=== PATIENT | male | born 1965 | race Caucasian/White ===

== ENCOUNTER 2021-07-12 01:01 | Emergency (ER) | payer OTHER, SELFPAY ==
[2021-07-12 01:22] VITALS: BP 155/93; PULSE 105; RESP 18; TEMP 37.6; O2SAT 94; BMI 27.0
--- NOTE | 2021-07-12 02:54 | W.ED.GENADLT ---
HPI - General Adult General: Chief complaint: General Medical Stated complaint: covid symptoms Time Seen by Provider: 07/12/21 02:50 Source: patient Mode of arrival: ambulatory Limitations: no limitations History of Present Illness: HPI narrative: 55-year-old male states he has been having some headaches mainly sinus headache sinus congestion over the last 2 days. He states that he gets recurrent sinus infections and this feels similar. He states that he is concerned he may have COVID but states is extremely cautious states that he does not believe that he has been exposed. He denies any vomiting or diarrhea. Denies any cough. Associated symptoms: Reports headache(s); Deny chest pain, dyspnea, nausea, rash or vomiting Review of Systems Const: Reports: chills Eyes: Denies: blurry vision or eye discomfort ENMT: Reports: nasal congestion Card: Denies: chest pain Resp: Denies: dyspnea GI: Denies: abdominal pain, nausea, vomiting or diarrhea : Denies: dysuria Musc: Denies: neck pain or back pain Skin/Breast: Denies: rash Neuro: Reports: headache(s) Psych: Denies: depression Manoj/Lymph: Denies: easy bruising All/Imm: Denies: urticaria PFSH ED PFSH: Medical History (Updated 07/12/21 @ 03:01 by Aracelis Hirsch MD) No pertinent past medical history Social History (Updated 07/12/21 @ 03:01 by Aracelis Hirsch MD) Substance/Drug Use: never Physical Exam Const: COMMON NORMALS: no acute distress, patient oriented x3 and healthy appearing HENMT: COMMON NORMALS: normocephalic and atraumatic HEAD & SCALP: normocephalic and atraumatic OTHER: Nasal congestion noted with frontal sinus tenderness Eye: COMMON NORMALS: Equal, round and reactive pupils present and EOMs intact bilaterally PUPIL: Yes Equal, round and reactive pupils present Neck/C-Spine: COMMON NORMALS: full ROM and supple Chest: COMMONS NORMALS: normal inspection of the chest and normal palpation of entire chest wall Resp: COMMON NORMALS: normal respiratory effort, No retractions, No use of accessory muscles and clear to auscultation bilaterally AUSCULTATION: clear to auscultation bilaterally Cardio: COMMON NORMALS: regular rate, regular rhythm and No murmurs present (Cardio) RATE: regular rate RHYTHM: regular rhythm GI: COMMON NORMALS: Normal to inspection, nondistended, normoactive bowel sounds present, Soft to palpation, non-tender and no masses PALPATION: Yes Soft to palpation Extremity: COMMON NORMALS: normal to inspection and full ROM Neuro: COMMON NORMALS: patient oriented x3, moves all extremities and no focal motor deficits Psych: COMMON NORMALS: mental status grossly normal, Normal thought process present and cooperative THOUGHT PROCESS: Normal thought process present Skin: COMMON NORMALS: no rashes or lesions noted and no wounds GENERAL SKIN EXAM: no rashes or lesions noted Course Vital Signs: Vital signs: Vital Signs Temperature 99.6 F 07/12/21 01:22 Pulse Rate 105 H 07/12/21 01:22 Respiratory Rate 18 07/12/21 01:22 Blood Pressure 155/93 07/12/21 01:22 Pulse Oximetry 94 07/12/21 01:22 MDM - General Adult MDM Narrative: Medical decision making narrative: Patient presents here with likely sinusitis. We will test him for COVID will prescribe him Keflex informed him to hold the Keflex prescription until we get the COVID result back in a day or 2 but is negative he is to start if it is positive I went started and likely symptoms are from COVID. Patient given Decadron here he is to follow-up his PCP in 5 to 7 days and return if worsening. He understands agrees to plan. Discharge Plan Discharge Patient Disposition: Home Clinical Impression: Sinusitis Qualifiers: Sinusitis location: frontal Chronicity: acute Recurrence: non-recurrent Qualified Code(s): J01.10 - Acute frontal sinusitis, unspecified Condition: Stable Prescriptions: New cephalexin 500 mg capsule 500 mg PO QID 7 Days Qty: 28 RF: 0 Discharge Orders: Discharge ED (Routine); Ordered 07/12/21 Ordered By: Aracelis Hirsch Discharge Diet: Advance as tolerated Discharge Activity: Resume usual activity Patient Instructions: Sinusitis (ED) Coding Level of Care Code ED Community Health Program Coordinator for Chg Fwd Exam Comprehensive
[2021-07-12] MEDS: dexamethasone 4 mg Tablet 10 MG PO (03:06)
[2021-07-14 07:56] LABS: Quest SARS-CoV-2 RNA DETECTED (NOT DETECTED)
== END 2021-07-12 03:07 | disposition home or self-care (01) ==
PROVIDERS: Emergency Provider Emergency Medicine
DX: J01.10 Acute frontal sinusitis, unspecified (principal); U07.1 COVID-19
CPT/HCPCS: 87635; 99283; J8540

== ENCOUNTER → 2023-04-03 08:46 | Outpatient (BNVA) | payer OTHER, SELFPAY | PROVIDERS: Visit Provider Family Medicine | DX: I10 Essential (primary) hypertension (principal); E78.5 Hyperlipidemia, unspecified; E66.3 Overweight; N52.9 Male erectile dysfunction, unspecified | CPT/HCPCS: 85025 ==

== ENCOUNTER 2023-07-20 18:13 | Emergency (ER) | payer OTHER, SELFPAY ==
[2023-07-20 18:22] VITALS: BP 159/92; PULSE 87; RESP 15; TEMP 36.7; O2SAT 95
[2023-07-20 18:50] LABS: Basophils % 0.5 %; Eosinophils # 0.2 10^3/uL (0.0-0.8); Eosinophils % 2.3 %; Hematocrit 47.3 % (37-53); Lymphocytes # 2.2 10^3/uL (0.8-4.8); Lymphocytes % 34.2 %; Mean Corpuscular HGB Conc 33.2 g/dL (30-55); Mean Corpuscular Hemoglobin 30.2 pg (27-33); Monocytes # 0.6 10^3/uL (0.2-0.9); Monocytes % 8.7 %; Neutrophils # 3.47 10^3/uL (1.8-7.7); Neutrophils % 54.1 %; Nucleated Red Blood Cells % 0 %; Platelet Count 282 10^3/cmm (157-399); Red Cell Distribution Width 12.6 % (12.1-15.1); White Blood Count 6.41 10^3/uL (3.29-11.43)
--- NOTE | 2023-07-20 18:59 | W.ED.ABDPA2 ---
HPI - Abdominal Pain General: Chief Complaint: Abdominal Pain Stated Complaint: righ abd pain Time Seen by Provider: 07/20/23 18:58 History of Present Illness: 57-year-old male patient comes in today with right abdominal pain. Patient appears nontoxic. Patient reports pain is exacerbated by eating. Patient does have his gallbladder. Patient had his appendix out. Patient has been diagnosed with IBS x 10 years. Patient does take medications for high blood pressure, ED, allergies, and cholesterol. Associated Symptoms: Reports nausea; Denies constipation, diarrhea and vomiting Review of Systems General: Reports: 10 or more systems reviewed and unremarkable except in HPI and below GI: Reports: abdominal pain and nausea; Denies: vomiting, diarrhea or constipation PFSH ED PFSH: Medical History (Updated 07/20/23 @ 20:14 by BRENDA Brown) Herpes simplex Erectile dysfunction Basal cell carcinoma Arrhythmia Dyslipidemia Hypertension Surgical History History of radiofrequency ablation procedure for cardiac arrhythmia History of umbilical hernia repair History of appendectomy Family History Other Diabetes Hyperlipidemia Hypertension Denies family history of CAD (coronary artery disease) Clotting disorder Dementia Psychiatric illness Chronic kidney disease (CKD) Anesthesia complication Bleeding disorder Lung disease Cancer Stroke Social History Smoking and tobacco/nicotine status: never used tobacco/nicotine Alcohol intake: never Substance/Drug Use: never Lives independently: Yes Marital status: Single Number of children: 5 Current occupational status: employed Current occupation: [employer] Special lilian needs: No Agree to transfusion: Yes Physical Exam Const: COMMON NORMALS: alert HENMT: COMMON NORMALS: normocephalic HEAD & SCALP: normocephalic Neck/C-Spine: COMMON NORMALS: full ROM Chest: COMMONS NORMALS: normal inspection of the chest Resp: COMMON NORMALS: normal respiratory effort and clear to auscultation bilaterally AUSCULTATION: clear to auscultation bilaterally Cardio: COMMON NORMALS: regular rate and regular rhythm RATE: regular rate RHYTHM: regular rhythm GI: COMMON NORMALS: Soft to palpation PALPATION: Yes Soft to palpation and Yes Tenderness to palpation present (GI) Details: RUQ : COMMON NORMALS: Yes no CVA tenderness BLADDER/KIDNEY EXAM: Yes no CVA tenderness Back/Pelvis: COMMON NORMALS: no CVA tenderness Extremity: COMMON NORMALS: normal to inspection and no pedal edema Neuro: SENSORIUM/ORIENTATION: Yes alert Skin: COMMON NORMALS: turgor normal GENERAL SKIN EXAM: turgor normal Course Vital Signs: Vital signs: Vital Signs Temperature 98.0 F 07/20/23 18:22 Pulse Rate 87 07/20/23 18:22 Respiratory Rate 15 07/20/23 18:22 Blood Pressure 159/92 07/20/23 18:22 Pulse Oximetry 95 07/20/23 18:22 Oxygen Delivery Me thod Room Air 07/20/23 18:22 MDM - Abdominal Pain Medical Decision Making 57-year-old male patient comes in with persistent right upper quadrant abdominal pain for 2 weeks. Patient reports pain is worsened by eating. Patient reports mild nausea but no vomiting or diarrhea. Patient does have a history of IBS which he first related to it and had changed his diet but has had no improvement in pain over the last 2 weeks. Patient appears nontoxic. Patient appears in mild pain. Respirations are even lungs are clear to auscultation. Patient does have tenderness in right upper quadrant on palpation. Differential diagnosis includes but not limited to gallbladder disease, renal colic, constipation, IBS, pancreatitis, gastroenteritis. CBC, CMP, CT of the abdomen pelvis, and urinalysis were all within normal limits. Reviewed exam with patient with recommendations for treatment follow-up with primary care to discuss possible ultrasound and HIDA scan. No signs of acute illness was noted at this time. Patient reported understanding of care plan and need for follow-up or return to the ER. Lab Data 07/20/23 18:35 07/20/23 18:35 Labs/Radiology: Radiology Impressions Abdomen/Pelvis CT 07/20/23 19:05 IMPRESSION: 1. No bowel obstruction or inflammatory process associated with the bowel. 2. No free air or significant free fluid in the abdomen or pelvis. 3. The appendix is not visualized but there are no secondary signs of acute appendicitis. COMMENTS: Consistent with the [employer] [employer]'s Incidental Findings Committee white paper (J Am Sherrell Radiol 2018): Any incidental renal lesion less than 1 cm or classified as too small to characterize, or any incidental cystic renal lesion characterized as simple-appearing, is likely benign. No follow-up imaging is recommended for these lesions per consensus recommendations based on imaging criteria. Laboratory Results WBC 6.41 10^3/uL (3.29-11.43) 07/20/23 18:35 RBC 5.20 10^6/uL (3.85-5.65) 07/20/23 18:35 Hgb 15.70 g/dL (11.27-16.99) 07/20/23 18:35 Hct 47.3 % (37-53) 07/20/23 18:35 MCV 91.0 fl (82-101) 07/20/23 18:35 MCH 30.2 pg (27-33) 07/20/23 18:35 MCHC 33.2 g/dL (30-55) 07/20/23 18:35 RDW 12.6 % (12.1-15.1) 07/20/23 18:35 Plt Count 282 10^3/cmm (157-399) 07/20/23 18:35 MPV 10.0 fL (7.4-10.4) 07/20/23 18:35 Neut % (Auto) 54.1 % 07/20/23 18:35 Lymph % (Auto) 34.2 % 07/20/23 18:35 [place] % (Auto) 8.7 % 07/20/23 18:35 Eos % (Auto) 2.3 % 07/20/23 18:35 Baso % (Auto) 0.5 % 07/20/23 18:35 Neut # (Auto) 3.47 10^3/uL (1.8-7.7) 07/20/23 18:35 Lymph # (Auto) 2.2 10^3/uL (0.8-4.8) 07/20/23 18:35 [place] # (Auto) 0.6 10^3/uL (0.2-0.9) 07/20/23 18:35 Eos # (Auto) 0.2 10^3/uL (0.0-0.8) 07/20/23 18:35 Baso # (Auto) 0.0 10^3/uL (0.0-0.1) 07/20/23 18:35 Nucleated RBC % (auto) 0 % 07/20/23 18:35 Nucleated RBCs # 0.0 /100WBC 07/20/23 18:35 Sodium 142 mmol/L (136-145) 07/20/23 18:35 Potassium 4.2 mmol/L (3.5-5.1) 07/20/23 18:35 Chloride 105 mmol/L (98-107) 07/20/23 18:35 Carbon Dioxide 23 mmol/L (22-29) 07/20/23 18:35 Anion Gap 18.2 (5-19) 07/20/23 18:35 BUN 15 mg/dL (6-20) 07/20/23 18:35 Creatinine 0.9 mg/dL (0.7-1.2) 07/20/23 18:35 GFR Calculation 86.7 mL/min (90-130) L 07/20/23 18:35 Glucose 112 mg/dL (65-115) 07/20/23 18:35 Calculated Osmolality 296 mOsm/kg (285-295) H 07/20/23 18:35 Calcium 9.4 mg/dL (8.5-10.5) 07/20/23 18:35 Total Bilirubin 0.4 mg/dL (0.15-1.2) 07/20/23 18:35 AST 29 U/L (0-40) 07/20/23 18:35 ALT 33 U/L (0-41) 07/20/23 18:35 Alkaline Phosphatase 78 U/L (40-130) 07/20/23 18:35 Total Protein 7.5 g/dL (6.6-8.7) 07/20/23 18:35 Albumin 4.4 g/dL (3.5-5.2) 07/20/23 18:35 Globulin 3.1 g/dL (1.3-4.6) 07/20/23 18:35 Lipase 46 U/L (13-60) 07/20/23 18:35 Urine Color Yellow (Yellow) 07/20/23 19:32 Urine Appearance Clear (CLEAR) 07/20/23 19:32 Urine pH 5 (5-7) 07/20/23 19:32 Ur Specific Rufe 1.025 (1.005-1.030) 07/20/23 19:32 Urine Protein Neg (Negative) 07/20/23 19:32 Urine Glucose (UA) Norm (Normal) 07/20/23 19:32 Urine Ketones Negative (Negative) 07/20/23 19:32 Urine Blood Neg (Negative) 07/20/23 19:32 Urine Nitrate Negative (Negative) 07/20/23 19:32 Urine Bilirubin Neg (Negative) 07/20/23 19:32 Urine Urobilinogen Norm mg/dL (Negative) 07/20/23 19:32 Ur Leukocyte Esterase Negative (Negative) 07/20/23 19:32 All radiology interpretation(s) finalized by discharge Discharge Plan Discharge Patient Disposition: Home Clinical Impression: Abdominal pain Qualifiers: Abdominal location: right upper quadrant Qualified Code(s): R10.11 - Right upper quadrant pain Condition: Stable Prescriptions: No Action triamcinolone acetonide 0.1 % cream 1 applic topical BID fluticasone propionate [Flonase Allergy Relief] 50 mcg/actuation spray,suspension 2 spray intranasal DAILY Qty: 16 0RF Rx Instructions: administer into each nostril azithromycin 250 mg tablet See Rx Instructions PO .COMPLEX Qty: 6 0RF Rx Instructions: take 500 mg today (day 1), then 250 mg for 4 days (days 2-5) PO amlodipine [Norvasc] 5 mg tablet 5 mg PO .qhs Qty: 30 1RF ezetimibe 10 mg tablet 10 mg PO DAILY Qty: 90 2RF sildenafil (pulm.hypertension) 20 mg tablet See Rx Instructions .ROUTE .COMPLEX Qty: 60 0RF Dose Instruction: TAKE 1 TABLET BY MOUTH ONCE NEEDED FOR SEXUAL ACTIVITY. CAN TAKE UP TO 5 TABLETS IN A 24 HOUR PERIOD Rx Instructions: TAKE 1 TABLET BY MOUTH ONCE NEEDED FOR SEXUAL ACTIVITY. CAN TAKE UP TO 5 TABLETS IN A 24 HOUR PERIOD valacyclovir [Valtrex] 1 gram tablet 1,000 mg PO BID Qty: 10 0RF Discharge Orders: Discharge ED (Routine); Ordered 07/20/23 Ordered By: Dhruv Rene Referrals: Crow Tubbs MD [Primary Care Provider] - Patient Instructions: Abdominal Pain (ED) Activity Restrictions/Additional Instructions: Follow-up with primary care. No signs of acute illness was noted at the emergency room department tonight. Is important. Continue follow-up with pain persist. Drink plenty of water and fluids. Eat a healthy diet. Activity as tolerated. You may need to have a specialized ultrasound called HIDA scan for your gallbladder to further evaluate the gallbladder to ensure no abnormality. Return to the ER for worsening symptoms such as high fever greater than 100.4, blood in vomit or stool, or uncontrolled pain. Coding Level of Care Code ED Umbrella Repairer for Gini Reid
--- NOTE | 2023-07-20 19:05 | CTR_ITS ---
PROCEDURE INFORMATION: Exam: CT Abdomen And Pelvis With Contrast Exam date and time: 07/20/2023 7:32 PM Age: 57 years old Clinical indication: Abdominal pain; Localized; Right upper quadrant (ruq); Prior surgery; Surgery date: 6+ months; Surgery type: Appy, hernia; Additional info: Ruq abd pain TECHNIQUE: Imaging protocol: Computed tomography of the abdomen and pelvis with contrast. Radiation optimization: All CT scans at this facility use at least one of these dose optimization techniques: automated exposure control; mA and/or kV adjustment per patient size (includes targeted exams where dose is matched to clinical indication); or iterative reconstruction. Contrast material: OMNI 350; Contrast volume: 100 ml; Contrast route: INTRAVENOUS (IV); COMPARISON: US abdomen limited [id number] 11/03/2021 3:45 PM RADIATION DOSE METRICS: Total DLP (mGy-cm): 943 FINDINGS: Liver: Normal. No mass. Gallbladder and bile ducts: Normal. No calcified stones. No ductal dilation. Pancreas: Normal. No ductal dilation. Spleen: Normal. No splenomegaly. Adrenal glands: Normal. No mass. Kidneys and ureters: Bilateral simple appearing renal cysts are present which do not need further follow-up, as well as other subcentimeter hypodensities which are too small to adequately characterize. Stomach and bowel: Unremarkable. No obstruction. No mucosal thickening. Appendix: The appendix is not visualized but there are no secondary signs of acute appendicitis. Intraperitoneal space: Unremarkable. No free air. No significant fluid collection. Vasculature: Unremarkable. No abdominal aortic aneurysm. Lymph nodes: Unremarkable. No enlarged lymph nodes. Urinary bladder: Unremarkable as visualized. Reproductive: Unremarkable as visualized. Bones/joints: Unremarkable. No acute fracture. Soft tissues: Unremarkable. CT/CT abdomen pelvis w con* [id number] IMPRESSION: 1. No bowel obstruction or inflammatory process associated with the bowel. 2. No free air or significant free fluid in the abdomen or pelvis. 3. The appendix is not visualized but there are no secondary signs of acute appendicitis. COMMENTS: Consistent with the [place] [employer]'s Incidental Findings Committee white paper (J Am Sherrell Radiol 2018): Any incidental renal lesion less than 1 cm or classified as too small to characterize, or any incidental cystic renal lesion characterized as simple-appearing, is likely benign. No follow-up imaging is recommended for these lesions per consensus recommendations based on imaging criteria.
[2023-07-20] MEDS: iohexol 350 mg/mL 500 mL Btl (per mL) IV (19:27)
[2023-07-20 19:40] LABS: Add Urine Microscopic? NO; Charge for UA Resulting for Rev
[2023-07-20 19:49] LABS: Alanine Aminotransferase 33 U/L (0-41); Albumin Level 4.4 g/dL (3.5-5.2); Alkaline Phosphatase 78 U/L (40-130); Anion Gap 18.2 (5-19); Aspartate Amino Transferase 29 U/L (0-40); Blood Urea Nitrogen 15 mg/dL (6-20); Calcium 9.4 mg/dL (8.5-10.5); Carbon Dioxide 23 mmol/L (22-29); Chloride 105 mmol/L (98-107); Globulin 3.1 g/dL (1.3-4.6); Glomerular Filtration Rate 86.7 mL/min (90-130); Glucose 112 mg/dL (65-115); Osmolality Calculated 296 mOsm/kg (285-295); Potassium 4.2 mmol/L (3.5-5.1); Sodium 142 mmol/L (136-145); Total Bilirubin 0.4 mg/dL (0.15-1.2); Total Protein 7.5 g/dL (6.6-8.7)
[2023-07-20 19:50] LABS: Bilirubin Urine Neg (Negative); Blood Urine Neg (Negative); Glucose Urine UA Norm (Normal); Ketones Urine Negative (Negative); Leukocyte Esterase Urine Negative (Negative); Nitrate Urine Negative (Negative); Protein Urine Neg (Negative); Specific Gravity, Urine 1.025 (1.005-1.030); Urine Appearance Clear (CLEAR); Urine Color Yellow (Yellow); Urobilinogen Urine Norm (Negative); pH Urine 5 (5-7)
[2023-07-20 20:06] LABS: Lipase 46 U/L (13-60)
== END 2023-07-20 20:27 | disposition home or self-care (01) ==
PROVIDERS: Emergency Medicine; Emergency Provider Nurse Practitioner Family; PCP Family Medicine
DX: R10.11 Right upper quadrant pain (principal); E78.5 Hyperlipidemia, unspecified; I10 Essential (primary) hypertension
CPT/HCPCS: 36415; 74177; 80053; 81003; 83690; 85025; 99285; Q9967

== ENCOUNTER 2023-08-29 13:27 | Emergency (ER) | payer OTHER, SELFPAY ==
[2023-08-29 13:34] VITALS: BP 164/93; PULSE 81; RESP 16; TEMP 36.8; O2SAT 95; BMI 28.2
[2023-08-29 14:32] LABS: Basophils % 0.6 %; Eosinophils # 0.2 10^3/uL (0.0-0.8); Eosinophils % 2.6 %; Hematocrit 47.2 % (37-53); Lymphocytes # 1.9 10^3/uL (0.8-4.8); Lymphocytes % 29.5 %; Mean Corpuscular HGB Conc 33.3 g/dL (30-55); Mean Corpuscular Hemoglobin 29.7 pg (27-33); Mean Corpuscular Volume 89.2 fl (82-101); Mean Platelet Volume 10.6 fL (7.4-10.4); Monocytes # 0.5 10^3/uL (0.2-0.9); Monocytes % 7.6 %; Neutrophils # 3.89 10^3/uL (1.8-7.7); Neutrophils % 59.4 %; Nucleated Red Blood Cells % 0 %; Platelet Count 291 10^3/cmm (157-399); Red Blood Count 5.29 10^6/uL (3.85-5.65); Red Cell Distribution Width 12.9 % (12.1-15.1); White Blood Count 6.55 10^3/uL (3.29-11.43)
[2023-08-29 14:50] LABS: Alanine Aminotransferase 18 U/L (0-41); Albumin Level 4.5 g/dL (3.5-5.2); Alkaline Phosphatase 85 U/L (40-130); Aspartate Amino Transferase 22 U/L (0-40); Blood Urea Nitrogen 11 mg/dL (6-20); Calcium 9.1 mg/dL (8.5-10.5); Carbon Dioxide 24 mmol/L (22-29); Chloride 102 mmol/L (98-107); Creatinine Clr Calc Pharmacy 101.6299; Globulin 3.1 g/dL (1.3-4.6); Glomerular Filtration Rate 76.7 mL/min (90-130); Glucose 134 mg/dL (65-115); Lipase 42 U/L (13-60); Osmolality Calculated 289 mOsm/kg (285-295); Sodium 139 mmol/L (136-145); Total Bilirubin 0.5 mg/dL (0.15-1.2); Total Protein 7.6 g/dL (6.6-8.7)
--- NOTE | 2023-08-29 14:59 | ED_ITS ---
HPI - Abdominal Pain 2 General: Chief Complaint: Abdominal Pain Stated Complaint: right side pain Time Seen by Provider: 08/29/23 14:54 Source: patient Mode of arrival: ambulatory Limitations: no limitations History of Present Illness: Patient is a nice 57-year-old male who presents to ED today for evaluation of right-sided abdominal pain. Patient states he has had almost daily right sided abdominal pain over the past 3 months or so. Patient states he was seen here in the emergency department back in June and had normal blood work and a normal CT scan. Patient states since then he followed up with his PCP Dr. Tubbs. 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 Patient states he was placed on MiraLAX and has been taking this. He feels like his bowel movements have improved and are regular however he continued to have the pain. He states about 3 weeks ago his pain changed in character and is now having more of a burning discomfort to the right side of his abdomen. Symptoms are made worse with eating especially certain foods. He states he has been on a strict low FODMAP diet. He reports over the past week or so he has tried using Mylanta 3-4 times and reports significant relief every time he has used it. Patient states he has not tried any H2/PPI medications since this all started. He states he does have an appointment with GI in [place] in early March. He states he has never used alcohol. He states prior to the abdominal pain starting, he was using ibuprofen fairly regularly for back discomforts. He states he stopped taking this once the abdominal pain started. MD elicited complaint: abdominal pain Pertinent past history: none Onset (ago): month(s) Location: RUQ and RLQ Severity: moderate Quality: burning Migration to: no migration Exacerbating factors: eating Relieving factors: nothing Associated Symptoms: Reports constipation and nausea; Denies change in bowel habits, chills, dysuria, fever(s), hematochezia, hematuria, melena and vomiting Review of Systems 2 Const: Denies: fever(s), chills, body aches, fatigue or malaise ENMT: Denies: throat pain or odynophagia Card: Denies: chest pain or palpitations Resp: Denies: dyspnea GI: Reports: abdominal pain, nausea and constipation; Denies: vomiting, change in bowel habits, hematochezia or melena : Denies: flank pain, difficulty urinating, dysuria or hematuria Musc: Denies: neck pain, back pain, extremity pain or joint pain Skin/Breast: Denies: rash Neuro: Denies: headache(s), numbness in extremities, weakness in extremities or sensory changes PFSH ED 2 PFSH: Medical History Herpes simplex Erectile dysfunction Basal cell carcinoma Arrhythmia Dyslipidemia Hypertension Surgical History History of radiofrequency ablation procedure for cardiac arrhythmia History of umbilical hernia repair History of appendectomy Family History Other Diabetes Hyperlipidemia Hypertension Denies family history of CAD (coronary artery disease) Clotting disorder Dementia Psychiatric illness Chronic kidney disease (CKD) Anesthesia complication Bleeding disorder Lung disease Cancer Stroke Social History Smoking and tobacco/nicotine status: never used tobacco/nicotine Alcohol intake: never Substance/Drug Use: never Lives independently: Yes Marital status: Single Number of children: 5 Current occupational status: employed Current occupation: [employer] Special lilian needs: No Agree to transfusion: Yes Physical Exam 2 Const: COMMON NORMALS: no acute distress, average body habitus, patient oriented x3, no limitations, healthy appearing, alert and well nourished Eye: COMMON NORMALS: no scleral icterus Resp: COMMON NORMALS: normal respiratory effort and clear to auscultation bilaterally AUSCULTATION: clear to auscultation bilaterally Cardio: COMMON NORMALS: regular rate and regular rhythm RATE: regular rate RHYTHM: regular rhythm GI: COMMON NORMALS: Normal to inspection, nondistended, normoactive bowel sounds present, Soft to palpation, non-tender, No hepatosplenomegaly present and no masses INSPECTION: Yes normal to inspection PALPATION: Yes Soft to palpation and Yes No hepatosplenomegaly present OTHER: states he is not having much discomfort currently : COMMON NORMALS: Yes no CVA tenderness BLADDER/KIDNEY EXAM: Yes no CVA tenderness Back/Pelvis: COMMON NORMALS: no CVA tenderness Neuro: COMMON NORMALS: patient oriented x3 SENSORIUM/ORIENTATION: Yes alert Course 2 Vital Signs: Vital signs: Vital Signs Temperature 98.3 F 08/29/23 13:34 Pulse Rate 81 08/29/23 15:44 Respiratory Rate 16 08/29/23 13:34 Blood Pressure 154/94 08/29/23 15:44 Pulse Oximetry 94 08/29/23 15:44 Oxygen Delivery Me thod Room Air 08/29/23 13:34 MDM - Abdominal Pain Medical Decision Making Patient is a 57-year-old male who presents to the ED today with a complaint of abdominal pain over the past 3 months. He feels like the character of his pain worsened approximately 3 weeks ago. He states it is worse with eating and improved with Mylanta use. DDx includes irritable bowel syndrome, gastritis, gastric/duodenal ulcer, biliary colic. Patient does have GI follow-up in a few weeks with GI in [place]. I think it is reasonable to trial him on sucralfate and pantoprazole and discussed with GI at his upcoming appointment if he has noticed any significant change in his discomfort. Patient seemed agreeable with this plan. Return to ED precautions. He can continue to follow- up with PCP in the meantime if needed. His vital signs today are completely normal. Blood work is unremarkable. His abdomen was nonsurgical. There is no need for emergent imaging today. Medical Records I reviewed the patient's medical records. Lab Data I reviewed the patient's lab results. 08/29/23 14:05 08/29/23 14:05 Labs/Radiology: Laboratory Results WBC 6.55 10^3/uL (3.29-11.43) 08/29/23 14:05 RBC 5.29 10^6/uL (3.85-5.65) 08/29/23 14:05 Hgb 15.70 g/dL (11.27-16.99) 08/29/23 14:05 Hct 47.2 % (37-53) 08/29/23 14:05 MCV 89.2 fl (82-101) 08/29/23 14:05 MCH 29.7 pg (27-33) 08/29/23 14:05 MCHC 33.3 g/dL (30-55) 08/29/23 14:05 RDW 12.9 % (12.1-15.1) 08/29/23 14:05 Plt Count 291 10^3/cmm (157-399) 08/29/23 14:05 MPV 10.6 fL (7.4-10.4) H 08/29/23 14:05 Neut % (Auto) 59.4 % 08/29/23 14:05 Lymph % (Auto) 29.5 % 08/29/23 14:05 Whitman % (Auto) 7.6 % 08/29/23 14:05 Eos % (Auto) 2.6 % 08/29/23 14:05 Baso % (Auto) 0.6 % 08/29/23 14:05 Neut # (Auto) 3.89 10^3/uL (1.8-7.7) 08/29/23 14:05 Lymph # (Auto) 1.9 10^3/uL (0.8-4.8) 08/29/23 14:05 Whitman # (Auto) 0.5 10^3/uL (0.2-0.9) 08/29/23 14:05 Eos # (Auto) 0.2 10^3/uL (0.0-0.8) 08/29/23 14:05 Baso # (Auto) 0.0 10^3/uL (0.0-0.1) 08/29/23 14:05 Nucleated RBC % (auto) 0 % 08/29/23 14:05 Nucleated RBCs # 0.0 /100WBC 08/29/23 14:05 Sodium 139 mmol/L (136-145) 08/29/23 14:05 Potassium 4.0 mmol/L (3.5-5.1) 08/29/23 14:05 Chloride 102 mmol/L (98-107) 08/29/23 14:05 Carbon Dioxide 24 mmol/L (22-29) 08/29/23 14:05 Anion Gap 17.0 (5-19) 08/29/23 14:05 BUN 11 mg/dL (6-20) 08/29/23 14:05 Creatinine 1.0 mg/dL (0.7-1.2) 08/29/23 14:05 GFR Calculation 76.7 mL/min (90-130) L 08/29/23 14:05 Glucose 134 mg/dL (65-115) H 08/29/23 14:05 Calculated Osmolality 289 mOsm/kg (285-295) 08/29/23 14:05 Calcium 9.1 mg/dL (8.5-10.5) 08/29/23 14:05 Total Bilirubin 0.5 mg/dL (0.15-1.2) 08/29/23 14:05 AST 22 U/L (0-40) 08/29/23 14:05 ALT 18 U/L (0-41) 08/29/23 14:05 Alkaline Phosphatase 85 U/L (40-130) 08/29/23 14:05 Total Protein 7.6 g/dL (6.6-8.7) 08/29/23 14:05 Albumin 4.5 g/dL (3.5-5.2) 08/29/23 14:05 Globulin 3.1 g/dL (1.3-4.6) 08/29/23 14:05 Lipase 42 U/L (13-60) 08/29/23 14:05 No radiology studies performed this visit Discharge Plan Discharge Patient Disposition: Home Clinical Impression: Abdominal pain Qualifiers: Abdominal location: unspecified location Qualified Code(s): R10.9 - Unspecified abdominal pain Condition: Stable Prescriptions: New Carafate 1 gram tablet 1 g PO TID 14 Days Qty: 42 0RF Protonix 40 mg tablet,delayed release (DR/EC) 40 mg PO DAILY 28 Days Qty: 28 0RF No Action docusate sodium 100 mg tablet 100 mg PO DAILY PRN (Reason: as needed for constipation ) Qty: 30 0RF ezetimibe 10 mg tablet 10 mg PO DAILY Qty: 90 2RF sildenafil (pulm.hypertension) 20 mg tablet See Rx Instructions .ROUTE .COMPLEX Qty: 60 0RF Dose Instruction: TAKE 1 TABLET BY MOUTH ONCE NEEDED FOR SEXUAL ACTIVITY. CAN TAKE UP TO 5 TABLETS IN A 24 HOUR PERIOD Rx Instructions: TAKE 1 TABLET BY MOUTH ONCE NEEDED FOR SEXUAL ACTIVITY. CAN TAKE UP TO 5 TABLETS IN A 24 HOUR PERIOD Norvasc 5 mg tablet 5 mg PO BEDTIME Miralax 17 gram/dose powder 17 g PO QAM Discharge Orders: Discharge ED (Routine); Ordered 08/29/23 Ordered By: Deneen Castro Referrals: Crow Tubbs MD [Primary Care Provider] - Patient Instructions: Abdominal Pain (ED) Coding Level of Care Code ED Distribution Sales Representative for Yaneli Franklin
[2023-08-29 15:44] VITALS: BP 154/94; PULSE 81; O2SAT 94
== END 2023-08-29 15:46 | disposition home or self-care (01) ==
PROVIDERS: Emergency Medicine; Emergency Provider Physician Assistant; PCP Family Medicine
DX: R10.9 Unspecified abdominal pain (principal); E78.5 Hyperlipidemia, unspecified; I10 Essential (primary) hypertension
CPT/HCPCS: 36415; 80053; 83690; 85025; 99283

== ENCOUNTER 2023-10-03 14:49 | Outpatient (CLI) | payer OTHER, SELFPAY ==
[2023-10-05 09:45] LABS: Tissue Transglutaminse AB IGA <1.0 U/mL
== END 2023-10-03 14:50 | disposition home or self-care (01) ==
LOC: LAB 14:50
PROVIDERS: PCP Family Medicine; Visit Provider Family Medicine
DX: K52.9 Noninfective gastroenteritis and colitis, unspecified (principal); R19.7 Diarrhea, unspecified; K59.09 Other constipation
CPT/HCPCS: 36415; 83993; 86364; 87045; 87177; 87209; 87338; 87427; 87449

== ENCOUNTER 2024-06-11 07:33 | Outpatient (CLI) | payer OTHER, SELFPAY ==
--- NOTE | 2024-06-11 07:45 | NM_ITS ---
WS: [id number] NUCLEAR MEDICINE HIDA SCAN CLINICAL INFORMATION: RUQ PAIN TECHNIQUE: Following intravenous administration of 7.7 mCi of technetium 99m mebrofenin, images of th e abdomen were obtained over the course of 60 minutes. Next, gallbladder ejection fraction was determ ined by obtaining preprandial and one-hour postprandial images of the gallbladder following oral marquis stion of Ensure. COMPARISON: None. FINDINGS: Normal hepatic uptake at 5 minutes. Normal hepatic excretion. Gallbladder is visualized by 15 minutes . No evidence of acute cholecystitis. Normal common bile duct and small bowel activity. Gallbladder ejection fraction 84% within normal limits. No evidence of chronic cholecystitis. NM/NM hepatobiliary w phar* [id number] IMPRESSION: 1. No evidence of acute or chronic cholecystitis. 2. Gallbladder ejection fraction 84% within normal limits
== END 2024-06-11 07:34 | disposition home or self-care (01) ==
PROVIDERS: PCP Family Medicine; Visit Provider Family Medicine
DX: R10.9 Unspecified abdominal pain (principal)
CPT/HCPCS: 78227; A9537